=== PATIENT | female | born 2000 | race Caucasian/White ===

== ENCOUNTER 2022-01-02 09:41 | Emergency (ER) | payer OTHER ==
[2022-01-02 12:09] LABS: BASOPHIL 0.2 % (0-2); EOSINOPHIL 1.4 % (0-5); HCT 36.4 % (37.0-47.0); HGB 11.9 g/dl (12.5-16.0); LYMPHOCYTE 18.6 % (15-48); MCH 29.9 pg (25.0-31.0); MCHC 32.7 g/dL (32.0-36.0); MCV 91.5 fL (78.0-100.0); MONOCYTE 8.7 % (0-12); MPV 9.1 fL (6.0-9.5); NEUTROPHIL 70.7 % (41-80); NRBC 0; PLT 219 K/uL (150-400); RBC 3.98 M/uL (4.20-5.40); RDW 15.4 % (11.5-14.0); WBC 8.1 K/uL (4.0-10.5)
[2022-01-02 12:11] LABS: BILIRUBIN NEGATIVE (NEGATIVE); BLOOD NEGATIVE Ery/uL (NEGATIVE); CLARITY CLEAR (CLEAR); COLOR YELLOW (YELLOW); GLUCOSE (U) NORMAL (NORMAL); LEUKOCYTES NEGATIVE Leu/uL (NEGATIVE); NITRITE NEGATIVE (NEGATIVE); PROTEIN NEGATIVE (NEGATIVE); UROBILINOGEN 0.2 mg/dL (0.2-1.0)
[2022-01-02 12:32] LABS: BUN/CREAT RATIO (CALC) 8.5 RATIO; CREATININE 0.47 mg/dL (0.51-0.95); MAGNESIUM 1.8 mg/dL (1.8-2.4); POTASSIUM 4.2 mmol/L (3.5-5.1)
== END 2022-01-02 13:17 | disposition home or self-care (01) ==
LOC: FER 09:41
PROVIDERS: Emergency Medicine
DX: O99.891 Other specified diseases and conditions complicating pregnancy (principal); R00.2 Palpitations; Z3A.34 34 weeks gestation of pregnancy
CPT/HCPCS: 36415; 80048; 81003; 83735; 85025; 93005; J7030

== ENCOUNTER 2022-02-14 02:24 | Inpatient (IN) | payer OTHER ==
[~2022-02-14] VITALS: Ht 157.5 cm; Wt 98.4 kg
[2022-02-14 04:19] LABS: HCT 38.5 % (37.0-47.0); MCH 29.9 pg (25.0-31.0); MCHC 33.8 g/dL (32.0-36.0); MCV 88.5 fL (78.0-100.0); MPV 9.6 fL (6.0-9.5); RBC 4.35 M/uL (4.20-5.40); RDW 15.7 % (11.5-14.0); WBC 8.7 K/uL (4.0-10.5)
[2022-02-14 04:19] LABS: BILIRUBIN NEGATIVE (NEGATIVE); BLOOD TRACE-INTACT Ery/uL (NEGATIVE); CLARITY CLEAR (CLEAR); COLOR YELLOW (YELLOW); GLUCOSE (U) NORMAL (NORMAL); LEUKOCYTES NEGATIVE Leu/uL (NEGATIVE); NITRITE NEGATIVE (NEGATIVE); PROTEIN NEGATIVE (NEGATIVE); UROBILINOGEN 0.2 mg/dL (0.2-1.0)
[2022-02-15 07:04] LABS: HCT 33.7 % (37.0-47.0); HGB 11.3 g/dl (12.5-16.0); MCHC 33.5 g/dL (32.0-36.0); MCV 89.4 fL (78.0-100.0); MPV 9.5 fL (6.0-9.5); RBC 3.77 M/uL (4.20-5.40); RDW 16.2 % (11.5-14.0); WBC 8.6 K/uL (4.0-10.5)
[2022-02-15] MEDS ORDERED: COLACE100 MG PO (08:23)
[2022-02-15] MEDS ORDERED: IBUPROFEN800 MG PO (08:23)
[2022-02-15] MEDS ORDERED: PRENATAL FORMU1 EACH PO (08:24)
== END 2022-02-15 17:57 | disposition home or self-care (01) | DRG 807 ==
LOC: FOD 02:24 → FOB 02:25 → FOD 03:39 → FOB 03:40
PROVIDERS: ADMIT Specialist
PROC: 10E0XZZ Delivery of Products of Conception, External Approach (ICD-10-PCS; principal; 2022-02-14)
PROC: 0HQ9XZZ Repair Perineum Skin, External Approach (ICD-10-PCS; 2022-02-14)
PROC: 0UQMXZZ Repair Vulva, External Approach (ICD-10-PCS; 2022-02-14)
PROC: 3E0334Z Introduction of Serum, Toxoid and Vaccine into Peripheral Vein, Percutaneous Approach (ICD-10-PCS; 2022-02-15)
DX: O99.214 Obesity complicating childbirth (principal); Z37.0 Single live birth; Z3A.40 40 weeks gestation of pregnancy; O69.81X0 Labor and delivery complicated by cord around neck, without compression, not applicable or unspecified; Z20.822 Contact with and (suspected) exposure to COVID-19; O70.0 First degree perineal laceration during delivery; O26.893 Other specified pregnancy related conditions, third trimester; Z67.11 Type A blood, Rh negative; Z23 Encounter for immunization
CPT/HCPCS: 36415; 81003; 85461; J0595; J2405; J2790; J7120; U0002